=== PATIENT | male | born 1990 | race Caucasian/White ===

== ENCOUNTER 2023-08-15 14:04 | Emergency (ER) | payer SELFPAY ==
[~2023-08-15] VITALS: Ht 170.2 cm; Wt 101.0 kg
[2023-08-15 14:11] VITALS: BP 122/69; PULSE 62; RESP 18; TEMP 98.1; O2SAT 98
== END 2023-08-15 16:30 | disposition home or self-care (01) ==
LOC: ER 14:04
DX: M79.662 Pain in left lower leg (principal); Z90.49 Acquired absence of other specified parts of digestive tract
CPT/HCPCS: 99281